=== PATIENT | male | born 1950 | race Caucasian/White ===

== ENCOUNTER 2021-12-04 10:53 | Emergency (ER) | payer MEDICARE, SELFPAY ==
[2021-12-04 11:00] VITALS: BP 139/70; PULSE 51; RESP 16; TEMP 36.8; O2SAT 100
[2021-12-04 11:20] VITALS: BP 139/70; PULSE 51; RESP 16; TEMP 36.8; O2SAT 100
--- NOTE | 2021-12-04 11:43 | ED.WOUNDLAC ---
HPI - Wound/Laceration General Chief Complaint: Wound/Laceration Stated Complaint: Laceration to Finger Time Seen by Provider: 12/04/21 11:17 Source: patient, family, RN notes reviewed and old records reviewed Mode of arrival: ambulatory Limitations: no limitations History of Present Illness HPI narrative: 71-year-old male who presents to [facility] with complaints of laceration to the wilcox tip of his left middle finger which occurred this morning when he was trimming gan using aging box hand. Patient reports that his tetanus is not up to date.Patient has 1cm flap type of laceration which is minimally subcutaneous with edge at nail, no acute bleeding noted or acute pain voiced. Onset (ago): hour(s) (within past 1 hour) Location: other (left middle finger) Treatments prior to arrival: bandage Related Data Home Medications Medication Instructions Recorded Confirmed allopurinol 300 mg tablet 300 mg PO DAILY 12/04/21 12/04/21 amiodarone 200 mg tablet 200 mg PO DAILY 12/04/21 12/04/21 amlodipine 5 mg tablet 5 mg PO DAILY 12/04/21 12/04/21 finasteride 5 mg tablet 5 mg PO DAILY 12/04/21 12/04/21 gabapentin 100 mg tablet 100 mg PO DAILY 12/04/21 12/04/21 glipizide 5 mg tablet 5 mg PO BID 12/04/21 12/04/21 lovastatin 40 mg tablet 40 mg PO DAILY 12/04/21 12/04/21 metoprolol succinate 100 mg 100 mg PO DAILY 12/04/21 12/04/21 tablet,extended release 24 hr rivaroxaban 20 mg tablet (Xarelto) 20 mg PO DAILY 12/04/21 12/04/21 tamsulosin 0.4 mg capsule 0.4 mg PO DAILY 12/04/21 12/04/21 Allergies Allergy/AdvReac Type Severity Reaction Status Date / Time No Known Allergies Allergy Verified 12/04/21 11:16 Review of Systems Review of Systems: CONSTITUTIONAL: Denies fever, chills, or sweats. EYES: Denies visual changes, redness, or discharge. ENT: Denies rhinorrhea, congestion, sore throat, or otalgia. CARDIOVASCULAR: Denies chest pain, palpitations, or edema. RESPIRATORY: Denies cough or dyspnea. GASTROINTESTINAL: Denies abdominal pain, nausea, vomiting, or diarrhea. GENITOURINARY: Denies dysuria or hematuria. SKIN: Denies rash or itching, positive for laceration to left middle finger tip wilcox aspect MUSCULOSKELETAL: Denies back pain, joint pain, or myalgia. NEUROLOGIC: Denies headache, numbness, or weakness. PSYCHIATRIC: Denies anxiety or depression. [facility] Past Medical History Medical History (Updated 12/05/21 @ 15:32 by Lala Dumont NP) Anemia BPH (benign prostatic hyperplasia) CAD (coronary artery disease) Diabetes Gout Hyperlipidemia Hypertension Neuropathy Surgical History Surgical History (Updated 12/05/21 @ 15:23 by Lala Dumont NP) Hx of adenoidectomy Hx of heart artery stent Social History Social History (Updated 12/05/21 @ 15:23 by Lala Dumont NP) Smoking status: Former smoker Alcohol intake: unknown Substance use: unknown Living arrangements: with family Gender identity (if verbalized by the patient): Male Comments At time of signature, agree with nursing past medical, surgical, social and family history. There is no relevant family history pertinent to the presenting complaint Exam Narrative: GENERAL: Well-appearing, well-nourished, and in no acute distress. HEAD: Normocephalic, atraumatic. EYES: PERRLA and EOMI. ENT: Nares clear, no rhinorrhea or epistaxis. Mucous membranes moist.TM's normal with good light reflex, throat pink with no lesions or exudates no tonsil swelling NECK: Supple.no lymphadenopathy, some chronic neck pain CHEST: Clear to auscultation. No respiratory distress.SAO2 100% on room air HEART: sl irregular rate and rhythm, bradycardic. No murmur heard. Normal peripheral pulses. ABDOMEN: Soft, nontender, nondistended, normal active bowel sounds. EXTREMITIES: Normal range of motion. No edema. SKIN: Warm, dry, no rash. 1cm laceration to the distal wilcox tip of left middle finger minimally subcutaneous with no nail injury. NEURO: No focal deficits. Alert and
[2021-12-04] MEDS: TETANUS,DIPHTHERIA,AC PERTUSSIS ADULT (0.5 ML) BOOSTRIX IM (11:51)
== END 2021-12-04 12:27 | disposition home or self-care (01) ==
PROVIDERS: Emergency Provider Registered Nurse; PCP Internal Medicine
DX: S61.213A Laceration without foreign body of left middle finger without damage to nail, initial encounter (principal); W27.8XXA Contact with other nonpowered hand tool, initial encounter; Z23 Encounter for immunization; N40.0 Benign prostatic hyperplasia without lower urinary tract symptoms; I25.10 Atherosclerotic heart disease of native coronary artery without angina pectoris; M10.9 Gout, unspecified; E78.5 Hyperlipidemia, unspecified; I10 Essential (primary) hypertension; E11.40 Type 2 diabetes mellitus with diabetic neuropathy, unspecified; Z87.891 Personal history of nicotine dependence
CPT/HCPCS: 12001; 90471; 90715; 99203; G0463